=== PATIENT | female | born 2000 | race Caucasian/White ===

== ENCOUNTER 2024-04-06 13:45 | Emergency (ER) | payer OTHER, SELFPAY ==
[2024-04-06 14:07] VITALS: BP 94/59; PULSE 62; RESP 18; TEMP 36.6; O2SAT 95; BMI 33.8
--- NOTE | 2024-04-06 14:12 | ED.HA ---
HPI - Headache General Chief Complaint: General Medical Stated Complaint: Head pressure Time Seen by Provider: 04/06/24 16:37 History of Present Illness ED Provider: Fidel COREY Narrative: The patient is a 24-year-old female who has been having pain in her head coughing or raising her voice for about a week and a half. She says that she thinks about a week and a half ago she was coughing after smoking marijuana and noticed pain across her forehead. She says that since then any time she raises her voice or coughs she has a terrible pain in her forehead. She has been using ibuprofen without relief. Describes the pain as a 10/10. She says that between episodes of coughing or raising her voice she feels okay but she often has to raise her voice because she has toddlers at home and she is finding this pain very frustrating and worrisome. She has not been sick. She has had no runny nose. No shortness of breath. No sputum production. No fever, sweats, chills. No vomiting. The patient says that she has a history of poor vision in the right eye. 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 At one point she may have been told that she is legally blind in the right eye. The patient has an implant Nexplanon device for control. Related Data Allergies Allergy/AdvReac Type Severity Reaction Status Date / Time No Known Allergies Allergy Verified 04/06/24 14:08 [No Known Allergies*] Review of Systems Review of Systems: Yes all other systems are reviewed and are negative [facility] Social History Social History Advance Directives: No Advance Directives Information Provided: No Do you have a plan to hurt others: No Plan Physical Exam Vital Signs: Vital Signs: Last Vital Signs Temp 97.6 F 04/06/24 17:29 Pulse 57 04/06/24 17:29 Resp 16 04/06/24 17:29 BP 116/68 04/06/24 17:29 Pulse Ox 100 04/06/24 17:29 O2 Del Method Room Air 04/06/24 17:29 BMI result Body Mass Index 33.8 Const: Other: The patient is a 24-year-old. She is somewhat overweight. Her BMI is 33. She is awake and alert. She does not appear in acute distress. Mental status is normal. She is pleasant and cooperative. HEENT: Other: Face is symmetrical. Mucous membranes moist. Posterior pharynx is normal. No facial tenderness. No nasal discharge. Eyes: Other: The patient has mild esotropia of the right eye. The left eye seems to be the dominant eye. Pupils are round equal. Conjunctivae are clear. Funduscopic exam did not seem to reveal any definite abnormalities but utilizing the fundi was difficult. The patient has visual acuity in the left eye is 20/20. The patient's visual acuity in the right eye is 20/200. Neck: Other: The patient is neck is entirely supple. She is able to touch her chin to her chest very easily. No adenopathy. Resp: Effort & Inspection: normal respiratory effort Auscultation: clear to auscultation bilaterally Cardio: Rate: regular rate Rhythm: regular rhythm Heart sounds: S1 normal heart sound present and S2 normal heart sound present Skin: Other: Skin is dry and unremarkable Neuro: Other: The patient is awake and alert with a normal mental status. Cognition is normal. Thought process is normal. Orientation is normal. She has some mild esotropia of the right eye. Vision in the right eye is considerably worse than in the left eye. Face is symmetrical. Speech is clear and normal. The neck is entirely supple. She moves her extremities normally and appropriately. Gait is normal. Extrem: Other: No peripheral edema Course Course Course Narrative: This is a Rapid Medical Examination (RME) performed by Razia Santos PA-C in triage. Full HPI, ROS, assessment and treatment plan per primary provider in the Main ED. 24 yo female here for eval of 10/10 head pressure x1.5 weeks. reports pain is worse w/ coughing and speaking loudly. Endorses associated nausea without vomiting. Taking Zofran at home. Initially thought it was a head cold however has persisted. Taking Tylenol and ibuprofen without relief. She last took 800 mg Motrin 3 hours prior to arrival in ED. + hypotensive to 94/59. well appearing. no focal neuro deficits. ambulating w/ steady gait. Plan: labs, viral serology +/- imaging per primary provider Medications Administered Discontinued Medications Generic Name Dose Route Start Last Admin Trade Name Freq PRN Reason Stop Dose Admin Acetaminophen 975 mg 04/06/24 17:12 04/06/24 17:17 Acetaminophen 325 Mg Tablet PO 04/06/24 17:13 975 mg ONCE ONE Administration Ketorolac Tromethamine 30 mg 04/06/24 17:12 04/06/24 17:18 Ketorolac Tromethamine 30 Mg/Ml Vial IM 04/06/24 17:13 30 mg ONCE ONE Administration Medical Decision Making Medical Decision Making [facility] Narrative: The patient is a 24-year-old female who presents complaining of a headache syndrome which is somewhat unusual. She that when she coughs or raises her voice she gets an intense pain across her forehead. Pain is definitely triggered by straining such as coughing or speaking loudly. It does not associated with a stiff neck. She really does not describe a thunderclap headache at any point. Clinically she does not look toxic and her neck is entirely supple. My suspicion for any acutely dangerous intracranial process is low. She has a history of surgery for her right eye to correct that she describes as a ?lazy eye. ? She also says that her vision in her right eye is usually worse than in her left eye. The right eye visual acuity today is considerably worse (20/200) than in the left eye(20/20) and she believes he is not usually this bad. Given that she says she has been told in the past that she might be legally blind in the right eye I am not convinced that her or visual acuity today is an acute finding and I am not convinced that it is related to the headache syndrome she is describing. She was offered a head CT although I do not have a very high suspicion that a head CT might give an answer to her headache syndrome. 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 She will be discharged recommendation to start by seeing an power plant superintendent. She was given the name and number of the on-call power plant superintendent. If she can not get into see Dr. Thomas she should see her regular chart computer. If significantly worse she should return to the emergency room. She does not have a regular doctor. She was given the number of medical offices to try to get a regular doctor. Lab Data 04/06/24 15:04 04/06/24 15:04 Labs: Lab Results 04/06/24 Range/Units 15:04 WBC 6.8 (4.8-10.8) X10*3/uL RBC 4.44 (4.20-5.50) X10*6/uL Hgb 14.2 (12.0-16.0) g/dl Hct 39.3 (37.0-47.0) % MCV 88.5 (80.0-98.0) fL MCH 32.0 (27.0-33.0) pg MCHC 36.1 H (31.0-35.0) g/dl RDW 11.9 (11.0-16.0) % Plt Count 204 (160-400) X10*3/uL MPV 10.0 (9.4-12.3) fL Immature Gran % (Auto) 0.3 (0.0-0.4) % Neut % (Auto) 43.2 L (45-73) % Lymph % (Auto) 42.0 H (20-40) % Moffat % (Auto) 11.8 H (2-11) % Eos % (Auto) 2.1 (0-4) % Baso % (Auto) 0.6 (0-2) % Lymph # (Auto) 2.9 (1.2-4.9) X10*3/uL Moffat # (Auto) 0.8 (0.1-1.2) X10*3/uL Eos # (Auto) 0.1 (0.0-0.4) X10*3/uL Baso # (Auto) 0.0 (0.0-0.2) X10*3/uL Abs Immat Gran (auto) 0.02 (0.00-0.03) X10*3/uL Absolute Neuts (auto) 2.9 (2.0-8.3) x10*3/uL Absolute Nucleated RBC 0.000 (0.0-0.012) X10*3/uL Nucleated RBC % (auto) 0.0 (0.0-0.2) /100WBC Sodium 141 (135-145) mmol/L Potassium 4.1 (3.3-5.1) mmol/L Chloride 107 (96-108) mmol/L Carbon Dioxide 25 (22-29) mmol/L Anion Gap 13 (12-20) BUN 9 (9-16) mg/dL Creatinine 0.71 (0.5-1.4) mg/dL Estim Creat Clear Calc 120.5 Estimated GFR > 60 Random Glucose 75 (60-115) mg/dL Calcium 9.8 (8.4-10.2) mg/dL Magnesium 2.2 (1.6-2.6) mg/dL Total Bilirubin 0.4 (0.0-1.0) mg/dL AST 29 (5-31) U/L ALT 44 H (0-31) U/L Alkaline Phosphatase 81 (39-117) U/L Total Protein 7.5 (6.5-8.0) g/dL Albumin 4.4 (3.5-5.0) g/dL Beta HCG, Quant < 2 mIU/mL Influenza Type A (PCR) NEGATIVE (Negative) Influenza Type B (PCR) NEGATIVE (Negative) RSV RNA Qual (PCR) NEGATIVE (Negative) SARS-CoV-2 RNA (RT-PCR) NEGATIVE (Negative) Discharge Plan Discharge Clinical Impression: Headache, Decreased vision of right eye Patient Disposition: Home, Self-Care Additional Instructions: COVID testing today is negative. Other blood testing is unremarkable. Your vital signs including your blood pressure is very good. I am not sure what is causing the pain in your head when you cough for raise your voice. Think it would be good for you to see an eye doctor since your vision in the right eye is quite poor. I have given you the name and number of Dr. Thomas, the power plant superintendent at [facility]. Please call his office tomorrow to set up an appointment to see if he can see you. If for any reason he is unable to see you please follow up with your regular chart computer for an eye exam and to discuss the vision of your right eye. Please also work on getting a new primary care doctor. You have been given some information about primary care doctor offices in the area. If significantly worse at any time please return to the emergency room for further evaluation. Referrals: Albin Thomas [Physician] - (Very poor vision right eye) Interventions: ED Discharge Assessment Last Done: 04/06/24 17:29 Discharge Date/Time: 04/06/24 17:40 Print Language: Georgian
[2024-04-06 15:08] LABS: MANUAL DIFF FLAG NO
[2024-04-06 15:15] LABS: Basophils Percent Auto 0.6 % (0-2); Eosinophils Absolute Auto 0.1 X10*3/uL (0.0-0.4); Eosinophils Percent Auto 2.1 % (0-4); Hematocrit 39.3 % (37.0-47.0); Hemoglobin 14.2 g/dl (12.0-16.0); Imm Gran Abs Auto 0.02 X10*3/uL (0.00-0.03); Imm Gran Pct Auto 0.3 % (0.0-0.4); Lymphocytes Absolute Auto 2.9 X10*3/uL (1.2-4.9); Mean Corpuscular HGB Conc 36.1 g/dl (31.0-35.0); Mean Corpuscular Volume 88.5 fL (80.0-98.0); Monocytes Absolute Auto 0.8 X10*3/uL (0.1-1.2); Monocytes Percent Auto 11.8 % (2-11); Neutrophils Absolute Auto 2.9 x10*3/uL (2.0-8.3); Neutrophils Percent Auto 43.2 % (45-73); Platelet Count 204 X10*3/uL (160-400); Red Blood Count 4.44 X10*6/uL (4.20-5.50); Red Cell Distribution Width 11.9 % (11.0-16.0); White Blood Count 6.8 X10*3/uL (4.8-10.8)
[2024-04-06 15:43] LABS: Alanine Aminotransferase 44 U/L (0-31); Albumin Level 4.4 g/dL (3.5-5.0); Alkaline Phosphatase 81 U/L (39-117); Anion Gap 13 (12-20); Aspartate Amino Transferase 29 U/L (5-31); Bilirubin Total 0.4 mg/dL (0.0-1.0); Blood Urea Nitrogen 9 mg/dL (9-16); Calcium 9.8 mg/dL (8.4-10.2); Carbon Dioxide 25 mmol/L (22-29); Chloride 107 mmol/L (96-108); Creatinine Clr Calc Pharmacy 120.5; Estimated Glomerular Filt Rate > 60; Glucose Random 75 mg/dL (60-115); HCG Quantitative < 2 mIU/mL; Magnesium 2.2 mg/dL (1.6-2.6); Potassium 4.1 mmol/L (3.3-5.1); Sodium 141 mmol/L (135-145); Total Protein 7.5 g/dL (6.5-8.0)
[2024-04-06 15:51] LABS: Influenza A PCR NEGATIVE (Negative); Influenza B PCR NEGATIVE (Negative); Resp Syncy Virus RNA Qual PCR NEGATIVE (Negative); SARS COV2 PCR INHOUSE NEGATIVE (Negative)
[2024-04-06] MEDS: Acetaminophen 325 MG TABLET 975 MG PO (17:17)
[2024-04-06] MEDS: Ketorolac Tromethamine 30 MG/ML VIAL IM (17:18)
[2024-04-06 17:29] VITALS: BP 116/68; PULSE 57; RESP 16; TEMP 36.4; O2SAT 100
== END 2024-04-06 17:40 | disposition home or self-care (01) ==
PROVIDERS: Physician Assistant Medical; Emergency Provider Emergency Medicine
DX: R51.9 Headache, unspecified (principal); H53.9 Unspecified visual disturbance; Z03.818 Encounter for observation for suspected exposure to other biological agents ruled out
CPT/HCPCS: 0241U; 80053; 83735; 84702; 85025; 96372; 99283; 99284; J1885

== ENCOUNTER 2025-01-20 18:02 | Emergency (ER) | payer OTHER, SELFPAY ==
--- NOTE | 2025-01-20 18:59 | PC.NURSE ---
patient called multiple times to triage, last call at [phone], no answer.
== END 2025-01-20 19:12 | disposition left against medical advice (07) ==
PROVIDERS: Emergency Provider Emergency Medicine
DX: L50.9 Urticaria, unspecified (principal); Z53.21 Procedure and treatment not carried out due to patient leaving prior to being seen by health care provider